=== PATIENT | female | born 1945 | race African-American/Black ===

== ENCOUNTER 2023-07-19 20:49 | Emergency (ER) | payer MEDICARE, BC, SELFPAY ==
[2023-07-19 20:57] VITALS: BP 110/69
[2023-07-19 21:24] LABS: % Basophils 0.6 % (0-2); % Eosinophils 4.4 % (0-6); % Immature Granulocytes 0.5 % (0-0.5); % Lymphocytes 13.5 % (20.5-51.1); % Monocytes 10.6 % (1.7-9.3); % Neutrophils 70.4 % (42.2-75.2); Absolute Eosinophils 0.3 10^3/uL (0-0.7); Absolute Lymphocytes 0.9 10^3/uL (1.2-3.4); Absolute Monocytes 0.7 10^3/uL (0.1-0.6); Absolute Neutrophils 4.6 10^3/uL (1.4-6.5); Hematocrit 36.5 % (37.0-47.0); Hemoglobin 11.9 g/dL (12.0-16.0); Mean Corp Hgb Conc. 32.6 g/dL (33.0-37.0); Mean Corpuscular Hgb 33.6 pg (27.0-31.0); Mean Corpuscular Volume 103.1 fL (81.0-99.0); Nucleated Red Blood Cells % 0 %; Platelet Count 162 10^3/uL (130-400); Red Blood Cell Count 3.54 10^6/uL (4.20-5.40); Red Cell Dist. Width 14.6 % (11.5-14.5); White Blood Cell Count 6.5 10^3/uL (4.8-10.8)
[2023-07-19 21:35] LABS: INR 1.76; PT 20.9 Sec (11.4-14.6)
[2023-07-19 21:37] LABS: Blood Urea Nitrogen 26 mg/dl (7-17); Calcium 9.6 mg/dl (8.4-10.2); Carbon Dioxide 34 mmol/L (22-30); Chloride 95 mmol/L (98-107); Glucose 113 mg/dl (70-99); Sodium 135 mmol/L (135-145); eGFR 9.81
--- NOTE | 2023-07-19 21:56 | ED.GENMED ---
History of Present Illness
General
Chief Complaint: Fall
Source: patient
Exam Limitations: none
Time Seen by Provider: 07/19/23 21:02
Travel History
Have you had any contact with someone who has COVID-19?: No
Do you have any symptoms of coronavirus? Fever > 100 degrees, chills, cough, shortness of breath, sore throat, loss of taste or smell, muscle aches, or headache?: No
History of Present Illness
History of Present Illness:
78-year-old female who presents after she passed out at home. Patient states she got home from dialysis and normally relaxes and sits for period of time. Today, she decided to go upstairs and when she upstairs she sat down but passed out and fell
to the floor. She bumped the left side of her head. She states that she has a little bit of pain in her neck as well. Patient denies chest pain or associated palpitations. She states she typically is a little bit lightheaded after dialysis but
usually sits for a while to acclimate. She denies fevers.
Past History
Past History
ED Past Medical History: HTN, Valvular disease, Other (Pulmonary hypertension) and Other (Renal failure)
ED Past Surgical History: Cardiac and Other (AV fistula)
Phy Exam
Physical Exam
Physical Exam:
CONSTITUTIONAL Patient alert and oriented to person, place and time. Well-appearing. Vital signs reviewed.
HEAD hematoma to left forehead. No open wounds
EYES eyelids normal to inspection, Pupils equally round and reactive to light, Extraocular muscles intact, Conjunctiva normal, Sclera normal.
NECK c-collar in place, Trachea midline, no jugular venous distention.
RESPIRATORY CHEST No respiratory distress noted, Chest expansion equal, Bilateral breath sounds clear.
CARDIOVASCULAR irregularly irregular, Heart sounds normal.
BACK normal inspection, no obvious deformities
UPPER EXTREMITY range of motion normal, Motor strength normal, no cyanosis, no edema. Left upper extremity fistula noted with normal
LOWER EXTREMITY range of motion normal, Motor strength normal, no cyanosis, no edema.
NEURO Speech normal, No focal motor deficits, [place] coma scale 15, Memory normal, Cranial Nerves intact to screening exam.
SKIN skin warm, dry, and normal in color.
Course
Orders/Labs/Results
Orders:
Orders
07/19/23 20:55
CT Head W/o Iv Contrast Urgent
Comment: incorrect order placed by RN, per Attending non contrast only
Reason For Exam: fall/headstrike/thinners
Cervical Spine wo Contrast CT [CT Cervical Spine W/o Iv Contr] Urgent
Comment:
Reason For Exam: fall/headstrike/neck tenderness
07/19/23 20:56
ECG [Electrocardiogram (*1)] Urgent
Reason for Study: Vertigo / Dizzy
EKG- Treatment ONCE
07/19/23 21:17
Basic Metabolic Panel Urgent
INR [Prothrombin Time] Urgent
07/19/23 21:18
Complete Blood Count/With Diff Urgent
07/19/23 21:47
CMP [Comprehensive Metabolic Panel] Urgent
Abnormal Lab Results
07/19/23 07/19/23 07/19/23
21:17 21:18 21:47
RBC 3.54 L 10^6/uL
(4.20-5.40)
Hgb 11.9 L g/dL
(12.0-16.0)
Hct 36.5 L %
(37.0-47.0)
MCV 103.1 H fL
(81.0-99.0)
MCH 33.6 H pg
(27.0-31.0)
MCHC 32.6 L g/dL
(33.0-37.0)
RDW 14.6 H %
(11.5-14.5)
Absolute Lymphs (auto) 0.9 L 10^3/uL
(1.2-3.4)
Absolute Monos (auto) 0.7 H 10^3/uL
(0.1-0.6)
Lymphocytes % 13.5 L %
(20.5-51.1)
Monocytes % 10.6 H %
(1.7-9.3)
PT 20.9 H Sec
(11.4-14.6)
Chloride 95 L mmol/L 96 L mmol/L
(98-107) (98-107)
Carbon Dioxide 34 H mmol/L 31 H mmol/L
(22-30) (22-30)
BUN 26 H mg/dl 26 H mg/dl
(7-17) (7-17)
Creatinine 4.4 H* mg/dL 4.6 H* mg/dL
(0.6-1.0) (0.6-1.0)
Glucose 113 H mg/dl 112 H mg/dl
(70-99) (70-99)
AST 40 H U/L
(14-36)
Alkaline Phosphatase 129 H U/L
(38-126)
07/19/23 21:18
07/19/23 21:51
Vital Signs
Initial and Last Documented VS:
Initial Vital Signs
Temp Pulse Resp BP Pulse Ox
97.8 F 75 19 110/69 95
07/19/23 20:57 07/19/23 20:57 07/19/23 20:57 07/19/23 20:57 07/19/23 20:57
Last Documented Vital Signs
Temp Pulse Resp BP Pulse Ox
97.8 F 82 18 110/69 100
07/19/23 20:57 07/19/23 21:15 07/19/23 21:03 07/19/23 20:57 07/19/23 21:03
MDM/Problems Addressed
Differential Diagnosis Includes:
Intracranial hemorrhage, skull fracture, hematoma, orthostatic hypotension, electrolyte imbalance, dehydration
MDM/Problems Addressed:
Head injury, syncope, end-stage renal disease
Chronic conditions affecting care: Arrhythmia (A-fib) and Kidney disease
*Radiology
Radiology exam reviewed: preliminary read by ED provider (No obvious C-spine fracture)
*Pulse Oximetry
Patient hypoxic: no
*EKG
Interpreted by ED Provider?: Yes
Interpretation: abnormal
Rate: normal
Rhythm: a-fib
[place]: normal axis
Ischemia: non-specific ST changes
*Sales Operations Specialist Interpretation
Interpretation: abnormal
Rhythm: a-fib
*Critical Care Note
Total Time (30-74mins, 75-104mins- exclusive of procedures): Not Applicable
Data Reviewed
Source: patient
Further Testing Considered But Not Given:
Considered troponin but patient denies any associated chest pain.
Patient Management
Escalation/DeEscalation of care consider admission/obs:
CT negative. INR is subtherapeutic likely. Appears well. Suspect her event was due to her dialysis today and hypovolemia. Okay for discharge
ED Attending Note
-
Portions of this chart may have been created with voice recognition software.� Occasional wrong word or��sound alike� substitutions may have occurred due to the inherent limitations of voice recognition software.
Discharge Plan
Departure
Patient Disposition: Home (Routine Discharge)
Date of Disposition: 07/19/23
Time of Disposition: 22:22
Patient with high blood pressure during this ER visit?: No
Discharge Problem:
Syncope, Head injury, Chronic a-fib, Chronic renal failure, Therapeutic coagulopathy
Instructions: Head Injury in Adults (DC), Contusion (DC), Fainting, Adult ED
Referrals:
NONE,* [Family Provider] -
Activity Restrictions/Additional Instructions:
Please see your doctor in the next 3 days for follow-up and reevaluation. Return immediate for headache, vomiting, weakness of any kind, passing out episode, chest pain, shortness of breath or any other concerns
Interventions
Interventions:
*Risk Screen - Suicide Last Done: 07/19/23 20:51
*General Assessment Last Done: 07/19/23 20:51
*Neglect/Abuse Screening Last Done: 07/19/23 20:51
ED- Fall Risk Assessment Last Done: 07/19/23 20:58
*ED COVID-19 Vaccine History Last Done: 07/19/23 20:51
ED-Musculoskeletal Assessment Last Done: 07/19/23 20:58
ED- Neurological Assessment Last Done: 07/19/23 20:58
ED-Skin Assessment Last Done: 07/19/23 20:58
[2023-07-19 22:00] VITALS: BP 98/68
[2023-07-19 22:12] LABS: ALT (SGPT) 29 U/L (0-35); AST (SGOT) 40 U/L (14-36); Albumin 4.8 g/dl (3.5-5.0); Alkaline Phosphatase 129 U/L (38-126); Blood Urea Nitrogen 26 mg/dl (7-17); Calcium 9.5 mg/dl (8.4-10.2); Carbon Dioxide 31 mmol/L (22-30); Chloride 96 mmol/L (98-107); Glucose 112 mg/dl (70-99); Potassium 3.8 mmol/L (3.5-5.1); Sodium 135 mmol/L (135-145); Total Protein 7.8 g/dl (6.3-8.2)
[2023-07-19 23:00] VITALS: BP 108/68
[2023-07-19] MEDS: TYLENOL 650 MG PO (23:23)
[2023-07-20 01:00] VITALS: BP 97/76
== END 2023-07-20 01:38 | disposition home or self-care (01) ==
LOC: EMR 20:49
PROVIDERS: EMERGENCY PHYSICIAN Emergency Medicine; FAMILY PHYSICIAN Internal Medicine
DX: R55 Syncope and collapse (principal); S09.90XA Unspecified injury of head, initial encounter; W19.XXXA Unspecified fall, initial encounter; N18.6 End stage renal disease; D68.9 Coagulation defect, unspecified
CPT/HCPCS: 99285; 70450; 72125; 80048; 80053; 85025; 85610; 93005

== ENCOUNTER 2023-09-27 09:43 | Emergency (ER) | payer MEDICARE, BC, SELFPAY ==
[2023-09-27 09:45] VITALS: BP 101/54
--- NOTE | 2023-09-27 10:20 | ED.GENMED ---
History of Present Illness
General
Chief Complaint: Nose Bleed
Source: patient and ambulance crew
Exam Limitations: none
Time Seen by Provider: 09/27/23 09:46
Nursing documentation reviewed up to this point in time: agreed with
Travel History
Have you had any contact with someone who has COVID-19?: No
Do you have any symptoms of coronavirus? Fever > 100 degrees, chills, cough, shortness of breath, sore throat, loss of taste or smell, muscle aches, or headache?: No
History of Present Illness
History of Present Illness:
78-year-old female with a past medical history of hypertension, A-fib on Coumadin, ESRD on dialysis (M/W/ schedule, due for dialysis today), chronic respiratory failure on 2 L oxygen who presents to the emergency department from home via EMS for
evaluation of nosebleed. Patient reports that she took a hot shower this morning and when she came out of the shower she had epistaxis. Unable to stop it with pressure and so she called EMS to bring her to the hospital. She says she was bleeding
out of both nares, on exam it seems to be slightly worse on the right. She says she is not swallowing any blood at all. She denies any chest pain, dizziness, shortness of breath. She is on Coumadin.
Past History
Past History
ED Past Medical History: HTN, Valvular disease, Other (Pulmonary hypertension) and Other (Renal failure)
ED Past Surgical History: Cardiac and Other (AV fistula)
Review of Systems
Review of Systems
All Other Systems: ROS reviewed and negative except as documented in HPI and ROS
Constitutional: Denies fever
EENT: Reports other (Epistaxis)
Respiratory: Denies trouble breathing
Cardiac: Denies chest pain
ABD/GI: Denies nausea or vomiting
Neurological: Denies dizzy
Phy Exam
Physical Exam
Physical Exam:
General: Awake, alert, oriented x3; no acute distress
Head: Normocephalic, atraumatic
Eyes: Conjunctiva normal, EOMI
Nose: Dried blood in nares bilaterally; patient has slow active bleeding from a minor abrasion/crack in the right nasal septum
Throat: Airway intact, handling secretions, no bleeding into the posterior oropharynx
Neck: Trachea midline
Lungs: Breathing comfortably no distress
Heart: Regular rate
Neuro: Cranial nerves grossly intact, speech fluid
Extremities: Warm and well-perfused
Scores
Heart Failure Risk
Heart Failure Risk Score: Not Applicable
Heart Score for Chest Pain Patients
STEMI patient?: Not applicable
Withdrawal Assessment of Alcohol
Withdrawal Assessment Completed?: Not applicable
Course
Orders/Labs/Results
Orders:
Orders
09/27/23 11:07
Prothrombin Time Urgent
Abnormal Lab Results
09/27/23
11:07
PT 19.5 H Sec
(11.4-14.6)
Vital Signs
Initial and Last Documented VS:
Initial Vital Signs
Temp Pulse Resp BP Pulse Ox
36.5 C 72 16 101/54 97
09/27/23 09:45 09/27/23 09:45 09/27/23 09:45 09/27/23 09:45 09/27/23 09:45
Last Documented Vital Signs
Temp Pulse Resp BP Pulse Ox
36.5 C 72 16 101/54 97
09/27/23 09:45 09/27/23 09:45 09/27/23 09:45 09/27/23 09:45 09/27/23 09:45
Procedures
Nosebleed
Drug treatment: Epinephrine
Treatment: Silver nitrate cautery
Post treatment bleeding: none- good control
MDM/Problems Addressed
Differential Diagnosis Includes:
Anterior epistaxis secondary to visualized abrasion/crack in the right nasal septum
MDM/Problems Addressed:
78-year-old female presents for evaluation of epistaxis�she is on Coumadin, wears chronic oxygen via nasal cannula. Says it started when she took a hot shower this morning. She says bleeding out of both nares which seems to be worse on the right
and she has a visualized source of bleeding on exam. Applied epinephrine soaked gauze to the nasal septum and will plan to cauterize thereafter. Will check INR. Reassess after the above.
Applied cotton gauze soaked with epinephrine and subsequently cauterized nasal septum. Good hemostasis. Will observe for rebleeding.
Observed for over an hour after cauterization no rebleeding good hemostasis. Will plan to discharge patient. She plans to go to dialysis today to get her treatment. She has been weaning herself off of nasal cannula recently because her oxygen
saturations have been reasonable advised to try to avoid using it unless she needs it due to hypoxia or dyspnea. Spoke about return precautions all questions answered.
Chronic conditions affecting care:
Anticoagulation complicates her epistaxis
*Pulse Oximetry
Patient hypoxic: no
*Critical Care Note
Total Time (30-74mins, 75-104mins- exclusive of procedures): Not Applicable
Data Reviewed
Source: patient and ambulance crew
ED Attending Note
-
Portions of this chart may have been created with voice recognition software.� Occasional wrong word or��sound alike� substitutions may have occurred due to the inherent limitations of voice recognition software.
Discharge Plan
Departure
Patient Disposition: Home (Routine Discharge)
Date of Disposition: 09/27/23
Time of Disposition: 12:28
Patient with high blood pressure during this ER visit?: No
Discharge Problem:
Acute anterior epistaxis
Instructions: Nosebleeds (DC)
Referrals:
Liz Hernandez MD [Family Provider] - Call in 1-3 days for appt
Activity Restrictions/Additional Instructions:
Thank you for visiting the Emergency Department at [facility].
1. Please schedule a follow up appointment as directed. Call first thing tomorrow morning to make an appointment.
2. If indicated, please take your medications as instructed and indicated on discharge paperwork.
3. If any of your symptoms do not improve, or persist, or become more severe within 6-12 hours, please return to the emergency department for further care.
4. Please return to the emergency department if you develop a headache, neck pain/stiffness, fever greater than 100.4F, chest pain, shortness of breath, persistent nausea, vomiting, slurred speech, difficulty walking, numbness/tingling, weakness,
signs of infection or any other symptoms that are worrisome to you.
Please call [phone] if you have any questions.
Interventions
Interventions:
*Risk Screen - Suicide Last Done: 09/27/23 09:55
*Neglect/Abuse Screening Last Done: 09/27/23 09:45
ED-EENT Assessment Last Done: 09/27/23 09:55
Discharge Date and Time
Print Language: TUVALUAN
[2023-09-27 11:27] LABS: INR 1.63; PT 19.5 Sec (11.4-14.6)
== END 2023-09-27 13:01 | disposition home or self-care (01) ==
LOC: EMR 09:43
PROVIDERS: EMERGENCY PHYSICIAN Emergency Medicine; FAMILY PHYSICIAN Internal Medicine
DX: R04.0 Epistaxis (principal); I12.0 Hypertensive chronic kidney disease with stage 5 chronic kidney disease or end stage renal disease; N18.6 End stage renal disease; Z79.01 Long term (current) use of anticoagulants; I48.91 Unspecified atrial fibrillation; I27.20 Pulmonary hypertension, unspecified; Z99.2 Dependence on renal dialysis
CPT/HCPCS: 99282; 30901; 85610

== ENCOUNTER 2023-09-27 23:52 | Emergency (ER) | payer MEDICARE, BC, SELFPAY ==
[2023-09-27 23:53] VITALS: BP 101/60; BMI 27.5
[2023-09-27 23:56] VITALS: BP 101/60
[2023-09-28] VITALS: BP 94/72
--- NOTE | 2023-09-28 00:08 | ED.GENMED ---
History of Present Illness
General
Chief Complaint: Nose Bleed
Source: patient
Exam Limitations: none
Time Seen by Provider: 09/27/23 23:53
Travel History
Have you had any contact with someone who has COVID-19?: No
Do you have any symptoms of coronavirus? Fever > 100 degrees, chills, cough, shortness of breath, sore throat, loss of taste or smell, muscle aches, or headache?: No
History of Present Illness
History of Present Illness:
This is a 78 year old female that comes in by ambulance with c/o nose bleed. States that she was here this morning as she had bleeding from both her nostrils. States that tonight it started about a 1/2 hour ago and it is only from the left side.
States that she is on Coumadin and her blood work done this morning. States that she took her Coumadin at 8am on Monday. Denies any fever, chills, chest pain, SOB, abd pain, nausea, vomiting, diarrhea, headache, dizziness, urinary burning.
Past History
Past History
ED Past Medical History: Arrthythmia (Atrial fib), HTN, Renal failure (Dialysis -W-), Valvular disease, Other (Pulmonary hypertension) and Other (Renal failure)
ED Past Surgical History: Cardiac (Valve surgery), Gynecological (Hysterectomy), Tonsilectomy and Other (AV fistula)
Social History
Tobacco: Non-smoker
Alcohol: None
Personal:
Living: with family
Review of Systems
Review of Systems
All Other Systems: ROS reviewed and negative except as documented in HPI and ROS
Constitutional: Reports no symptoms; Denies fever or chills
EENT: Reports other (Nose bleed)
Respiratory: Reports no symptoms; Denies cough or trouble breathing
Cardiac: Reports no symptoms; Denies chest pain
ABD/GI: Reports no symptoms; Denies abdominal pain, nausea, vomiting or diarrhea
: Reports no symptoms; Denies dysuria, frequency or urgency
Musculoskeletal: Reports no symptoms
Skin: Reports no symptoms
Neurological: Reports no symptoms; Denies dizzy or headache
Psychiatric: Reports no symptoms
Phy Exam
General Physical Exam
General Presentation: no apparent distress
General age: appears stated age
General Skin: warm and dry
General Habitus: elderly
General Mental: alert
General Hydration: appears well hydrated
ENT Exam
ENT Exam: TM's normal, pharynx normal, neck supple and other (Slow left sided nose bleeding)
Eye Exam
Eye Exam: EOMI
Cardiovascular Exam
Cardiovascular Exam: irregularly irregular
Pulmonary Exam
Pulmonary Exam: no respiratory distress, chest non tender, no rhonchi, no wheezing, no cough and other (Fine crackles right base)
Musculoskeletal Exam
Musculoskeletal Exam: full ROM
Skin Exam
Skin Exam: normal color, warm/dry, no rash, no petechia and other (Left upper arm Fistula with good bruits and thrill)
Psychiatric Exam
Psychiatric Exam: normal mood/affect
Course
Vital Signs
Initial and Last Documented VS:
Initial Vital Signs
Temp Pulse Resp BP Pulse Ox
97.8 F 95 18 101/60 98
09/27/23 23:53 09/27/23 23:53 09/27/23 23:53 09/27/23 23:53 09/27/23 23:53
Last Documented Vital Signs
Temp Pulse Resp BP Pulse Ox
97.8 F 83 18 101/68 100
09/27/23 23:53 09/28/23 01:00 09/27/23 23:53 09/28/23 01:00 09/28/23 01:00
Procedures
Nosebleed
Drug treatment: none
Treatment: other (Surgifoam placed left nostril and clamp applied)
MDM/Problems Addressed
Differential Diagnosis Includes:
Nose bleed
MDM/Problems Addressed:
This is a 78 year old female that comes in with c/o nose bleeding. States that she was here in the morning and seen by Dr. Brewster. States that she went home and tonight it started in the left nares.
Patient had her PT /INR checked in the morning. Left nares packed with Surgifoam and clamp applied will recheck.
back into see patient. Surgifoam has remained dry. Clamp removed and will recheck.
Back into see patient. Patient has had no further bleeding. Patient will be discharged home.
Chronic conditions affecting care:
On Coumadin due to valve replacement
Chronic conditions affecting care: Kidney disease
Acute Exacerbation and/or Progression of Chronic Illness:
NA
*Pulse Oximetry
Patient hypoxic: no
*EKG
Interpreted by ED Provider?: NA
Rate: EKG- N/A
*Accounts Supervisor Interpretation
Rate: Accounts Supervisor- N/A
*Critical Care Note
Total Time (30-74mins, 75-104mins- exclusive of procedures): Not Applicable
ED Attending Note
-
Portions of this chart may have been created with voice recognition software.� Occasional wrong word or��sound alike� substitutions may have occurred due to the inherent limitations of voice recognition software.
Discharge Plan
Departure
Patient Disposition: Home (Routine Discharge)
Date of Disposition: 09/28/23
Time of Disposition: 02:00
Patient with high blood pressure during this ER visit?: No
Condition: Good
Covid-19: Not Applicable
Discharge Problem:
Nasal bleeding
Instructions: Nosebleeds (DC)
Referrals:
UNKNOWN - PT DOES,NOT KNOW [Family Provider] -
Activity Restrictions/Additional Instructions:
As discussed, you left nares has been packed with Surgifoam. This will fall out on its own. You may use your Saline nasal spray as much as you want to help keep your nasal passages moist. Please follow up with the family doctor for further
evaluation. IF YOU HAVE ANY OTHER CONCERNS PLEASE RETURN TO THE EMERGENCY ROOM. .
Interventions
Interventions:
*Risk Screen - Suicide Last Done: 09/27/23 23:53
*General Assessment Last Done: 09/27/23 23:53
*Neglect/Abuse Screening Last Done: 09/27/23 23:53
*ED COVID-19 Vaccine History Last Done: 09/27/23 23:53
ED-EENT Assessment Last Done: 09/28/23 00:05
Discharge Date and Time
Print Language: ARABIC
[2023-09-28 01:00] VITALS: BP 101/68
[2023-09-28 02:00] VITALS: BP 105/66
[2023-09-28 03:00] VITALS: BP 91/62
[2023-09-28 04:00] VITALS: BP 93/58
== END 2023-09-28 04:31 | disposition home or self-care (01) ==
LOC: EMR 23:52
PROVIDERS: EMERGENCY PHYSICIAN Emergency Medicine
DX: R04.0 Epistaxis (principal); I48.91 Unspecified atrial fibrillation; I12.0 Hypertensive chronic kidney disease with stage 5 chronic kidney disease or end stage renal disease; I27.20 Pulmonary hypertension, unspecified; N18.6 End stage renal disease; Z79.01 Long term (current) use of anticoagulants; Z90.710 Acquired absence of both cervix and uterus; Z95.2 Presence of prosthetic heart valve; Z99.2 Dependence on renal dialysis
CPT/HCPCS: 99282

== ENCOUNTER 2023-09-28 09:40 | Emergency (ER) | payer MEDICARE, BC, SELFPAY ==
[2023-09-28 09:54] VITALS: BP 108/74
--- NOTE | 2023-09-28 11:06 | ED.GENMED ---
History of Present Illness
General
Chief Complaint: Nose Bleed
Source: patient
Exam Limitations: none
Time Seen by Provider: 09/28/23 10:39
Nursing documentation reviewed up to this point in time: agreed with
Travel History
Have you had any contact with someone who has COVID-19?: No
Do you have any symptoms of coronavirus? Fever > 100 degrees, chills, cough, shortness of breath, sore throat, loss of taste or smell, muscle aches, or headache?: No
History of Present Illness
History of Present Illness:
78 yr. old female presents back to the ER yesterday during the day and again around midnight. Patient initially had her right nares cauterized and then came back to the ER with recurrence of bleeding. During last night's visit patient had a left
nares packed with Surgifoam and she was discharged home. Her INR was checked during the day yesterday and it was 1.63. she is on dialysis patient normally wears oxygen but has been weaning off.
Past History
Past History
ED Past Medical History: Arrthythmia (Atrial fib), HTN, Renal failure (Dialysis M-W-F), Valvular disease, Other (Pulmonary hypertension) and Other (Renal failure)
ED Past Surgical History: Cardiac (Valve surgery), Gynecological (Hysterectomy), Tonsilectomy and Other (AV fistula)
Social History
Tobacco: Non-smoker
Alcohol: None
Personal:
Living: with family
Phy Exam
General Physical Exam
General Presentation: no apparent distress
General age: appears stated age
General Skin: warm and dry
General Habitus: elderly
General Hydration: appears well hydrated
ENT Exam
ENT Exam: other (nares with b/l dried blood , left nares with small packing in placed no active bleeding no blood in posterior pharynx)
Neurological Exam
Neurological Exam: alert and oriented x3
Musculoskeletal Exam
Musculoskeletal Exam: full ROM
Skin Exam
Skin Exam: normal color and warm/dry
Psychiatric Exam
Psychiatric Exam: normal mood/affect
Course
Vital Signs
Initial and Last Documented VS:
Initial Vital Signs
Temp Pulse Resp BP Pulse Ox
98.7 F 87 18 108/74 97
09/28/23 09:54 09/28/23 09:54 09/28/23 09:54 09/28/23 09:54 09/28/23 09:54
Last Documented Vital Signs
Temp Pulse Resp BP Pulse Ox
98.7 F 83 20 96/59 95
09/28/23 09:54 09/28/23 13:07 09/28/23 13:07 09/28/23 13:07 09/28/23 13:07
School Psychological Examiner consulted with Physician
School Psychological Examiner consulted with physician?: Yes
Name of Physician Consulted: Wild
MDM/Problems Addressed
Differential Diagnosis Includes:
not limited to : epistaxis
MDM/Problems Addressed:
Patient presented to the ER today for concerns for bleeding of her nose. She was seen here yesterday twice and had her right nares cauterized her left nares packed. She is on Coumadin and her INR as previously checked is 1.63. She presents here
awake alert no acute distress she has dried blood in both nares however there is no active bleeding she was monitored here for quite some time. She has no bleeding or pharynx. Will DC with ENT follow-up.
*Pulse Oximetry
Patient hypoxic: no
*Critical Care Note
Total Time (30-74mins, 75-104mins- exclusive of procedures): Not Applicable
Data Reviewed
Review of Other/Old Records Reveals: Other (previous ED visits )
ED Attending Note
-
Portions of this chart may have been created with voice recognition software.� Occasional wrong word or��sound alike� substitutions may have occurred due to the inherent limitations of voice recognition software.
Discharge Plan
Departure
Patient Disposition: Home (Routine Discharge)
Date of Disposition: 09/28/23
Time of Disposition: 12:25
Patient with high blood pressure during this ER visit?: No
Condition: Fair
Covid-19: Not Applicable
Discharge Problem:
Nasal bleeding
Instructions: Nosebleeds (DC)
Referrals:
Jordan Medina MD [Active] -
Liz Hernandez MD [Family Provider] -
Activity Restrictions/Additional Instructions:
As discussed follow-up with ear nose and throat physician in the next several days. Please call today to make an appointment. Return if any worsening of symptoms
Interventions
Interventions:
*Risk Screen - Suicide Last Done: 09/28/23 10:51
*General Assessment Last Done: 09/28/23 10:51
*Neglect/Abuse Screening Last Done: 09/28/23 10:51
ED- Fall Risk Assessment Last Done: 09/28/23 13:09
*ED COVID-19 Vaccine History Last Done: 09/28/23 10:51
*Nursing Disposition Last Done: 09/28/23 13:09
ED-EENT Assessment Last Done: 09/28/23 10:51
Discharge Date and Time
Discharge Date/Time: 09/28/23 13:10
Print Language: FAROESE
[2023-09-28 13:07] VITALS: BP 96/59
== END 2023-09-28 13:10 | disposition home or self-care (01) ==
LOC: EMR 09:40
PROVIDERS: EMERGENCY PHYSICIAN Student in an Organized Health Care Education/Training Program; FAMILY PHYSICIAN Internal Medicine
DX: R04.0 Epistaxis (principal); Z79.01 Long term (current) use of anticoagulants
CPT/HCPCS: 99283

== ENCOUNTER 2023-10-03 13:43 | Emergency (ER) | payer MEDICARE, BC, SELFPAY ==
--- NOTE | 2023-10-03 15:20 | ED.GENMED ---
History of Present Illness
<Nesha Garcias PA-C - Last Filed: 10/03/23 18:26>
General
Chief Complaint: Nose Bleed
Source: patient
Exam Limitations: none
Time Seen by Provider: 10/03/23 15:07
Nursing documentation reviewed up to this point in time: agreed with
Travel History
Have you had any contact with someone who has COVID-19?: No
Do you have any symptoms of coronavirus? Fever > 100 degrees, chills, cough, shortness of breath, sore throat, loss of taste or smell, muscle aches, or headache?: No
History of Present Illness
History of Present Illness:
Patient is a 78-year-old female on Coumadin presenting for removal of nasal packing. Patient was seen in our emergency department last week on 09/26 for evaluation of nosebleed. Left nares was packed with Surgifoam and patient was discharged.
Patient went to see primary care provider to have packing removed today and was instructed to go to the emergency department as they do not remove nasal packing.
Patient denies any nosebleeds since packing was placed last week. She denies any fever, chills, chest pain, shortness of breath, headache. Patient denies any nausea, vomiting or coughing blood.
Patient does have plans to follow-up with ENT when packing is been removed.
Past History
<Nesha Garcias PA-C - Last Filed: 10/03/23 18:26>
Past History
ED Past Medical History: Arrthythmia (Atrial fib), HTN, Renal failure (Dialysis M-W-F), Valvular disease, Other (Pulmonary hypertension) and Other (Renal failure)
ED Past Surgical History: Cardiac (Valve surgery), Gynecological (Hysterectomy), Tonsilectomy and Other (AV fistula)
Social History
Tobacco: Non-smoker
Alcohol: None
Personal:
Living: with family
Phy Exam
<Nesha Garcias PA-C - Last Filed: 10/03/23 18:26>
Physical Exam
Physical Exam:
General: In no apparent distress, nontoxic appearing
Vitals: Vital signs stable, afebrile
HEENT: Atraumatic, normocephalic; pupils equal round and reactive to light bilaterally, extraocular muscles intact, significant blood clots of bilateral nares without any signs of active bleeding, no foreign body visualized on speculum exam,
posterior pharynx clear without any evidence of blood, protecting airway, uvula midline
Neck: appears supple, trachea midline
CV: No evidence of cyanosis
Resp: No accessory muscle use
Abd: Non-distended
Extremities: No deformities, no evidence of cyanosis or edema
Neuro: alert and oriented; grossly intact
Psych: Normal affect
Skin: Intact, no rashes
Course
<Nesha Garcias PA-C - Last Filed: 10/03/23 18:26>
Vital Signs
Initial and Last Documented VS:
Initial Vital Signs
Temp Pulse Resp Pulse Ox
98 F 70 16 91
10/03/23 13:54 10/03/23 13:54 10/03/23 13:54 10/03/23 13:54
Last Documented Vital Signs
Temp Pulse Resp BP Pulse Ox
98 F 75 18 104/64 93
10/03/23 13:54 10/03/23 16:22 10/03/23 16:22 10/03/23 16:22 10/03/23 16:22
<Kristie Cuello MD - Last Filed: 10/03/23 16:09>
Vital Signs
Initial and Last Documented VS:
Initial Vital Signs
Temp Pulse Resp Pulse Ox
98 F 70 16 91
10/03/23 13:54 10/03/23 13:54 10/03/23 13:54 10/03/23 13:54
Last Documented Vital Signs
Temp Pulse Resp BP Pulse Ox
98 F 75 18 104/64 93
10/03/23 13:54 10/03/23 16:22 10/03/23 16:22 10/03/23 16:22 10/03/23 16:22
<Nesha Garcias PA-C - Last Filed: 10/03/23 18:26>
MDM/Problems Addressed
Differential Diagnosis Includes:
Not limited to: Nasal foreign body
MDM/Problems Addressed:
Patient is a 78-year-old female on Coumadin presenting for removal of anterior nasal packing. Patient was seen in emergency department 6 days ago due to nosebleed and left nare was packed with Surgifoam. Patient presents for removal today. No
active nosebleed at this time. Vital signs are stable. Physical exam as documented above. There is significant dried blood of bilateral nares but on speculum exam there is no visualized foreign body. Did remove a small blood clot from left nare
and patient reports improvement in subjective foreign body sensation in left nare. There is no evidence of Surgifoam remaining in left or right nare. Suspect that it may have dissolved. There is no blood in the posterior pharynx. No active
bleeding from nose at this time. Patient is stable and in no apparent distress. Stable for discharge with close ENT follow-up and return precautions. Patient seen switching oxygen into nose and reports that she can feel the flow upon discharge.
Patient comfortable with this plan. All questions answered.
Chronic conditions affecting care:
Valvular disorder on Coumadin
Acute Exacerbation and/or Progression of Chronic Illness:
N/A
<Nesha Garcias PA-C - Last Filed: 10/03/23 18:26>
*Pulse Oximetry
Patient hypoxic: no
*Supply Chain Logistics Manager Interpretation
Rate: Supply Chain Logistics Manager- N/A
*Critical Care Note
Total Time (30-74mins, 75-104mins- exclusive of procedures): Not Applicable
ED Attending Note
<Nesha Garcias PA-C - Last Filed: 10/03/23 18:26>
-
Portions of this chart may have been created with voice recognition software.� Occasional wrong word or��sound alike� substitutions may have occurred due to the inherent limitations of voice recognition software.
<Kristie Cuello MD - Last Filed: 10/03/23 16:09>
ED Attending Note
Patient seen and examined by attending physician: Yes
I performed the substantive portion of visit, reviewed & personally made and approve the management plan that is documented in note by myself or LUDMILA.: Yes
ED Attending Note:
Patient arrived to the ED to get her packing removed from her left nare. Patient had Surgifoam packed in it about 6 days ago. patient has dried blood clots of both nare.
Patient looks well and comfortable. I personally put a speculum in patient's left nare and did not see any foreign body in there. Patient is breathing comfortably.
Discharge Plan
Departure
Patient Disposition: Home (Routine Discharge)
Date of Disposition: 10/03/23
Time of Disposition: 16:06
Patient with high blood pressure during this ER visit?: No
Discharge Problem:
Encounter for removal of nasal packing
Instructions: Nosebleeds (DC)
Referrals:
Jordan Medina MD [Active] - Call in 1-3 days for appt
Liz Hernandez MD [Family Provider] -
Activity Restrictions/Additional Instructions:
-Return to the emergency department with any repeat persistent nosebleeds, chest pain, shortness of breath, dizziness/lightheadedness, coughing/vomiting up blood, worsening in current symptoms, or any other concerns
-You should continue to take your medications as prescribed.
-As discussed�you should use saline nasal spray as often as possible to keep nose moist.
-He should follow-up with ENT in the next few days for further management/evaluation
Interventions
Interventions:
*Risk Screen - Suicide Last Done: 10/03/23 13:54
*General Assessment Last Done: 10/03/23 13:54
*Neglect/Abuse Screening Last Done: 10/03/23 13:54
*Nursing Disposition Last Done: 10/03/23 16:40
ED-EENT Assessment Last Done: 10/03/23 16:40
Discharge Date and Time
Discharge Date/Time: 10/03/23 16:41
Print Language: VINCENTIAN
[2023-10-03 16:22] VITALS: BP 104/64
== END 2023-10-03 16:41 | disposition home or self-care (01) ==
LOC: EMR 13:43
PROVIDERS: EMERGENCY PHYSICIAN Emergency Medicine; FAMILY PHYSICIAN Internal Medicine
DX: Z48.00 Encounter for change or removal of nonsurgical wound dressing (principal); I48.91 Unspecified atrial fibrillation; I12.0 Hypertensive chronic kidney disease with stage 5 chronic kidney disease or end stage renal disease; N18.6 End stage renal disease; Z99.2 Dependence on renal dialysis; I27.20 Pulmonary hypertension, unspecified; I38 Endocarditis, valve unspecified; Z79.01 Long term (current) use of anticoagulants; Z88.8 Allergy status to other drugs, medicaments and biological substances
CPT/HCPCS: 99282

== ENCOUNTER 2025-02-11 06:47 | Emergency (ER) | payer MEDICARE, BC, SELFPAY ==
[2025-02-11 06:52] VITALS: BP 127/66
[2025-02-11 09:07] LABS: Hematocrit 32.8 % (37.0-47.0); Hemoglobin 10.4 g/dL (12.0-16.0); Mean Corp Hgb Conc. 31.7 g/dL (33.0-37.0); Mean Corpuscular Volume 99.4 fL (81.0-99.0); Platelet Count 149 10^3/uL (130-400); Red Cell Dist. Width 15.0 % (11.5-14.5)
[2025-02-11 09:33] LABS: ALT (SGPT) 12 U/L (0-35); AST (SGOT) 18 U/L (14-36); Albumin 4.3 g/dl (3.5-5.0); Alkaline Phosphatase 197 U/L (38-126); Blood Urea Nitrogen 82 mg/dl (7-17); Calcium 10.7 mg/dl (8.4-10.2); Carbon Dioxide 24 mmol/L (22-30); Chloride 101 mmol/L (98-107); Glucose 83 mg/dl (70-99); Potassium 5.5 mmol/L (3.5-5.1); Sodium 139 mmol/L (135-145); Total Protein 6.6 g/dl (6.3-8.2); eGFR 4.02
--- NOTE | 2025-02-11 10:00 | ED.GENMED ---
History of Present Illness
General
Chief Complaint: Abdominal Symptoms
Time Seen by Provider: 02/11/25 08:08
History of Present Illness
History of Present Illness:
79-year-old female with history of end-stage dialysis presents for evaluation of diarrhea beginning yesterday. She reports 5-6 episodes of loose stool, nonbloody. She did eat at a restaurant the day prior to onset of symptoms. No ill contacts at
home. She missed her dialysis session yesterday as a result of her diarrhea. Denies abdominal pain or fever at this point
Past History
Past History
ED Past Medical History: Arrthythmia (Atrial fib), HTN, Renal failure (Dialysis -W-), Valvular disease, Other (Pulmonary hypertension) and Other (Renal failure)
ED Past Surgical History: Cardiac (Valve surgery), Gynecological (Hysterectomy), Tonsilectomy and Other (AV fistula)
Social History
Tobacco: Non-smoker
Alcohol: None
Personal:
Living: with family
Review of Systems
Review of Systems
Allergies reviewed?: Yes
All Other Systems: ROS reviewed and negative except as documented in HPI and ROS
Phy Exam
Physical Exam
Physical Exam:
GEN: Well appearing, NAD, WDWN
HEENT: Oral mucosa moist, no scleral icterus
Cardiac: Regular rate
Lung: No respiratory distress, no tachypnea
Abdomen: Soft and nontender
MSK: No gross deformity or injuries
Skin: Good color, no pallor or jaundice, no rashes
Neuro: AO x3, moves all extremities freely
Psych: Calm, cooperative
Course
Orders/Labs/Results
Orders:
Orders
02/11/25 08:26
C DIFF [C difficile Antigen & Toxins] Urgent
PAUL Source: Feces/Stool
Specimen Description:
Stool Culture Urgent
PAUL Source: Feces/Stool
Specimen Description:
02/11/25 08:55
Complete Blood Count/No Diff Urgent
Comprehensive Metabolic Panel Urgent
Abnormal Lab Results
02/11/25
08:55
RBC 3.30 L 10^6/uL
(4.20-5.40)
Hgb 10.4 L g/dL
(12.0-16.0)
Hct 32.8 L %
(37.0-47.0)
MCV 99.4 H fL
(81.0-99.0)
MCH 31.5 H pg
(27.0-31.0)
MCHC 31.7 L g/dL
(33.0-37.0)
RDW 15.0 H %
(11.5-14.5)
MPV 11.1 H fL
(7.4-10.4)
Potassium 5.5 H mmol/L
(3.5-5.1)
BUN 82 H mg/dl
(7-17)
Creatinine 9.2 H* mg/dL
(0.6-1.0)
Calcium 10.7 H mg/dl
(8.4-10.2)
Alkaline Phosphatase 197 H U/L
(38-126)
02/11/25 08:55
02/11/25 08:55
Vital Signs
Initial and Last Documented VS:
Initial Vital Signs
Temp Pulse Resp BP Pulse Ox
98.3 F 68 16 127/66 97
02/11/25 06:52 02/11/25 06:52 02/11/25 06:52 02/11/25 06:52 02/11/25 06:52
Last Documented Vital Signs
Temp Pulse Resp BP Pulse Ox
98.3 F 68 16 127/66 97
02/11/25 06:52 02/11/25 06:52 02/11/25 06:52 02/11/25 06:52 02/11/25 10:01
MDM/Problems Addressed
MDM/Problems Addressed:
Likely self-limited viral versus foodborne bacterial diarrhea, will write for outpatient orders for stool specimen, I was able to contact her dialysis clinic and she will go directly there from the ED for dialysis today. No indication for empiric
antibiotics at this point. No indication for imaging as she has a nontender abdomen
*Pulse Oximetry
SaO2: 97
Nasal Cannula flow liters per minute: 2
Patient hypoxic: no
*Critical Care Note
Total Time (30-74mins, 75-104mins- exclusive of procedures): Not Applicable
ED Attending Note
-
Portions of this chart may have been created with voice recognition software.� Occasional wrong word or��sound alike� substitutions may have occurred due to the inherent limitations of voice recognition software.
Discharge Plan
Departure
Patient Disposition: Home (Routine Discharge)
Date of Disposition: 02/11/25
Time of Disposition: 10:00
Patient with high blood pressure during this ER visit?: No
Discharge Problem:
Diarrhea
Instructions: Diarrhea in teens and adults
Referrals:
Liz Hernandez MD [Family Provider, Internal Medicine]
Activity Restrictions/Additional Instructions:
Collect stool specimen and return to outpatient lab of your choice as soon as possible
Interventions
Interventions:
*Risk Screen - Suicide Last Done: 02/11/25 06:52
JK-Eqbybo-Uksqokwppw Assessment Last Done: 02/11/25 09:03
Discharge Date and Time
Print Language: AMHARIC
[2025-02-11 10:30] VITALS: BP 145/75
== END 2025-02-11 10:30 | disposition home or self-care (01) ==
LOC: EMR 06:47
PROVIDERS: Physician Assistant; EMERGENCY PHYSICIAN Student in an Organized Health Care Education/Training Program; FAMILY PHYSICIAN Internal Medicine
DX: R19.7 Diarrhea, unspecified (principal); I12.0 Hypertensive chronic kidney disease with stage 5 chronic kidney disease or end stage renal disease; N18.6 End stage renal disease; Z99.2 Dependence on renal dialysis; I48.91 Unspecified atrial fibrillation; I27.20 Pulmonary hypertension, unspecified; Z91.158 Patient's noncompliance with renal dialysis for other reason
CPT/HCPCS: 99283; 80053; 85027

== ENCOUNTER 2025-02-14 17:35 | Emergency (ER) | payer MEDICARE, BC, SELFPAY ==
[2025-02-14 17:41] VITALS: BP 82/65; BMI 25.3
--- NOTE | 2025-02-14 17:41 | ED.GENMED ---
History of Present Illness
General
Chief Complaint: Fainting/Passed Out
Source: patient and ambulance crew
Exam Limitations: none
Time Seen by Provider: 02/14/25 17:37
History of Present Illness
History of Present Illness:
See MDM
Past History
Past History
ED Past Medical History: Arrthythmia (Atrial fib), HTN, Renal failure (Dialysis M-W-F), Valvular disease, Other (Pulmonary hypertension) and Other (Renal failure)
ED Past Surgical History: Cardiac (Valve surgery), Gynecological (Hysterectomy), Tonsilectomy and Other (AV fistula)
Social History
Tobacco: Non-smoker
Alcohol: None
Personal:
Living: with family
Phy Exam
Physical Exam
Physical Exam:
See MDM
Course
Orders/Labs/Results
Orders:
Orders
02/14/25 17:40
Electrocardiogram (*1) Urgent
Reason for Study: Syncope
EKG- Treatment ONCE
02/14/25 17:56
Complete Blood Count/With Diff Urgent
Comprehensive Metabolic Panel Urgent
Abnormal Lab Results
02/14/25
17:56
RBC 3.06 L 10^6/uL
(4.20-5.40)
Hgb 9.8 L g/dL
(12.0-16.0)
Hct 30.1 L %
(37.0-47.0)
MCH 32.0 H pg
(27.0-31.0)
MCHC 32.6 L g/dL
(33.0-37.0)
RDW 14.7 H %
(11.5-14.5)
MPV 10.8 H fL
(7.4-10.4)
Absolute Lymphs (auto) 0.6 L 10^3/uL
(1.2-3.4)
Absolute Monos (auto) 0.7 H 10^3/uL
(0.1-0.6)
Lymphocytes % 8.1 L %
(20.5-51.1)
Eosinophils % 9.1 H %
(0-6)
Chloride 97 L mmol/L
(98-107)
Carbon Dioxide 31 H mmol/L
(22-30)
Creatinine 2.5 H mg/dL
(0.6-1.0)
Calcium 10.4 H mg/dl
(8.4-10.2)
Alkaline Phosphatase 188 H U/L
(38-126)
02/14/25 17:56
02/14/25 17:56
Vital Signs
Initial and Last Documented VS:
Initial Vital Signs
Temp Pulse Resp BP Pulse Ox
97.5 F 78 20 82/65 98
02/14/25 17:41 02/14/25 17:41 02/14/25 17:41 02/14/25 17:41 02/14/25 17:41
Last Documented Vital Signs
Temp Pulse Resp BP Pulse Ox
97.5 F 79 23 103/71 100
02/14/25 17:41 02/14/25 19:23 02/14/25 19:23 02/14/25 19:23 02/14/25 18:45
MDM/Problems Addressed
Differential Diagnosis Includes:
Note:
CHIEF COMPLAINT(S)
Syncope and weakness after dialysis session.
HISTORY OF PRESENT ILLNESS
The patient is a 79-year-old female who experienced a syncopal episode upon returning home from a routine dialysis session. While going up the stairs at home, she felt weak and dizzy, leading to a brief loss of consciousness without any trauma.
There was no mention of any associated injuries. Pt was brought back into her wheelchair without actually falling. It is suggested that the syncopal episode may be due to a combination of medication effects and the dialysis treatment. Pt states her
blood pressure meds were recently increased. Per MES, the patients blood pressure was reported as low at the time of the event. At the time of evaluation, the patient expressed a desire for water and was feeling better, although she mentioned
feeling quite thirsty.
PAST MEDICAL AND SURIGICAL HISTORY
Chronic kidney disease requiring dialysis.
CHRONIC MEDICAL CONDITIONS SIGNIFICANTLY AFFECTING CARE
Chronic kidney disease requiring dialysis.
REVIEW OF SYSTEMS
- General: Weakness, dizziness.
- Cardiovascular: Potential hypotension.
- Neurological: Episode of syncope.
PHYSICAL EXAM
General: Alert, no acute distress.
Skin: Warm, dry.
Head: Normocephalic, atraumatic
Neck: Appears supple, trachea midline.
Eyes, Ears, Nose, Mouth, and Throat: Mildly dry mucous membranes
Cardiovascular: No signs of cyanosis. Regular rate and rhythm
Respiratory: Respirations are non-labored.
Abdomen: Non-distended
Musculoskeletal: No deformities
Neurological: No focal neurological deficit observed.
Psychiatric: Cooperative, appropriate mood and affect.
PLAN
- Check an Electrocardiogram to assess the hearts status.
- Monitor hydration status and adjust fluid intake accordingly.
- Rule out medication or dialysis-related causes for weakness and dizziness.
- Follow up on the patient�s ability to maintain appropriate hydration without exacerbating the underlying kidney condition.
DIFFERENTIAL DIAGNOSIS
The Differential Diagnosis includes, in no particular order and is not limited to:
1. Medication-induced hypotension.
2. Volume depletion due to dialysis.
3. Dehydration.
4. Cardiac arrhythmia.
5. Orthostatic hypotension.
6. Electrolyte imbalance.
7. Hypoglycemia.
8. Vascular insufficiency.
9. Vasovagal syncope.
10. Anemia-related fatigue.
My independent EKG interpretation is:
- Rhythm: Atrial Fibrillation
- Heart Rate: 73 beats per minute
- Bonham: Normal
- Notable Abnormalities: None specified (no ST-Elevation Myocardial Infarction)
SUMMARY OF ENCOUNTER
The patient, a 79-year-old female, was seen in the emergency department following a syncopal episode experienced after a routine dialysis session. She reported feeling weak, dizzy, and experienced a brief loss of consciousness without any trauma.
Upon evaluation, she expressed feeling quite thirsty and thus was significantly better hydrated. Blood work reviewed appeared consistent with her chronic condition of kidney disease, with no acute issues noted. Multiple reassessments in the
emergency department showed improvement in her condition. The encounter focused on discussing potential causes of her symptoms such as orthostatic hypotension, over-diuresis, or potential over-medication with antihypertensives.
ASSESSMENT
The differential diagnosis includes medication-induced hypotension, volume depletion due to dialysis, dehydration, orthostatic hypotension, and possible over-medication with antihypertensives.
REASSESSMENT
On multiple reassessments, the patient reported feeling much better and comfortable with the decision to be managed as an outpatient.
PLAN
- Monitor hydration status and adjust fluid intake as necessary.
- Follow up with primary care and kidney specialists to reassess and possibly adjust medications.
- Monitor blood pressure closely and adjust antihypertensive treatments if necessary.
PATIENT EDUCATION AND COUNSELING
The patient was counseled on the possibility of orthostatic hypotension, the effects of over-diuresis, and over-medication in relation to her antihypertensive treatment. She was advised to follow up with her primary care and kidney doctors to ensure
proper management and medication adjustments.
FOLLOW-UP INSTRUCTIONS
The patient was instructed to follow up with her primary care physician and school secretary to reassess her treatment plan and make any necessary medication adjustments.
MEDICAL DECISION MAKING
- Number and Complexity of Problems Addressed: Chronic conditions affecting care include chronic kidney disease requiring dialysis.
- Data:
Category 1: Reviewed lab work indicative of chronic issues with no acute findings. Discussed possible over-diuresis and antihypertensive over-medication with the patient.
- Risk:
Prescription medication management involving potential antihypertensive adjustment was considered. Close outpatient follow-up with healthcare providers was suggested to monitor for complications and adjustment of treatment if necessary.
DIAGNOSIS
- Orthostatic Hypotension (ICD-10: I95.1)
- Volume Depletion due to Dialysis (ICD-10: E86.0)
- Medication-Induced Hypotension (ICD-10: I95.2)
*Pulse Oximetry
Patient hypoxic: no
*Critical Care Note
Total Time (30-74mins, 75-104mins- exclusive of procedures): Not Applicable
ED Attending Note
-
Portions of this chart may have been created with voice recognition software.� Occasional wrong word or��sound alike� substitutions may have occurred due to the inherent limitations of voice recognition software.
Discharge Plan
Departure
Patient Disposition: Home (Routine Discharge)
Date of Disposition: 02/14/25
Time of Disposition: 19:30
Patient with high blood pressure during this ER visit?: No
Discharge Problem:
Near syncope
Instructions: Near Fainting (DC)
Referrals:
Liz Hernandez MD [Family Provider, Internal Medicine]
Activity Restrictions/Additional Instructions:
Please return for any worsening symptoms.
You may return at any time if you have further concerns.
Please follow up with your doctor at the first available appointment, preferably this week.
Thank you for choosing [facility].
Interventions
Interventions:
*Risk Screen - Suicide Last Done: 02/14/25 17:41
*General Assessment Last Done: 02/14/25 17:41
*Neglect/Abuse Screening Last Done: 02/14/25 17:41
*ED- Fall Risk Assessment Last Done: 02/14/25 17:41
*ED COVID-19 Vaccine History Last Done: 02/14/25 17:41
ED- Cardiac Assessment Last Done: 02/14/25 18:32
ED- Neurological Assessment Last Done: 02/14/25 18:32
Discharge Date and Time
Print Language: INDONESIAN
[2025-02-14 17:44] VITALS: BP 82/65
[2025-02-14 18:26] LABS: Hematocrit 30.1 % (37.0-47.0); Hemoglobin 9.8 g/dL (12.0-16.0); Mean Corp Hgb Conc. 32.6 g/dL (33.0-37.0); Mean Corpuscular Volume 98.4 fL (81.0-99.0); Nucleated Red Blood Cells % 0 %; Platelet Count 175 10^3/uL (130-400); Red Cell Dist. Width 14.7 % (11.5-14.5)
[2025-02-14 19:00] LABS: ALT (SGPT) 15 U/L (0-35); AST (SGOT) 26 U/L (14-36); Albumin 4.6 g/dl (3.5-5.0); Alkaline Phosphatase 188 U/L (38-126); Blood Urea Nitrogen 17 mg/dl (7-17); Calcium 10.4 mg/dl (8.4-10.2); Carbon Dioxide 31 mmol/L (22-30); Chloride 97 mmol/L (98-107); Estimated Creatinine Clearance 15 ml/min; Glucose 97 mg/dl (70-99); Potassium 4.0 mmol/L (3.5-5.1); Sodium 137 mmol/L (135-145); Total Protein 7.1 g/dl (6.3-8.2); eGFR 19.20
[2025-02-14 19:23] VITALS: BP 103/71
--- NOTE | 2025-02-14 19:38 | EDRN ---
Pt informed this RN she is hungry and feels like her usual self, ready to go home. Dr Rome informed and said he would discharge pt. Assisted pt with calling her who asked that pt get ambulance transport home. Pt given turkey sandwich
and unsweetened applesauce to eat and cipriano gold to drink.
== END 2025-02-14 21:15 | disposition home or self-care (01) ==
LOC: EMR 17:35
PROVIDERS: EMERGENCY PHYSICIAN Student in an Organized Health Care Education/Training Program; FAMILY PHYSICIAN Internal Medicine
DX: I95.2 Hypotension due to drugs (principal); E86.9 Volume depletion, unspecified; I12.0 Hypertensive chronic kidney disease with stage 5 chronic kidney disease or end stage renal disease; N18.6 End stage renal disease; Z99.2 Dependence on renal dialysis; I27.20 Pulmonary hypertension, unspecified; I48.91 Unspecified atrial fibrillation
CPT/HCPCS: 99284; 80053; 85025; 93005